=== PATIENT | male | born 1940 | race Caucasian/White ===

== ENCOUNTER 2019-10-09 23:50 | Emergency (ER) | payer MEDICARE, OTHER ==
[~2019-10-09] VITALS: Ht 180.3 cm; Wt 79.8 kg
[~2019-10-09 23:50] MED LIST: DONE10TA44 PO; MEMA28CA PO
--- NOTE | 2019-10-09 23:55 | NUR ---
TO ER BED 2 BIB PRIVATE AMBULANCE FROM [facility] S/P GLF X4HR. PER EMT PT FELL OUT OF WHEELCHAIR & HIT THE BACK OF HIS HEAD. NO KO PER REPORT. PT AAOX2, NO ACUTE DISTRESS NOTED, RESP EVEN AND UNLABORED. ER MD AT BEDSIDE TO EVAL PT WITH ORDERS RECEIVED.
--- NOTE | 2019-10-10 01:10 | NUR ---
PER [facility], COULD NOT TRANSPORT PT DUE TO INSURANCE
--- NOTE | 2019-10-10 01:17 | NUR ---
CALLED [facility] FOR TRANSPORTATION, [phone] [phone]
--- NOTE | 2019-10-10 01:38 | NUR ---
REPORT CALLED TO [facility] AND [facility] REGARDING PT DISCHARGE.
--- NOTE | 2019-10-10 03:35 | NUR ---
REPORT GIVEN TO EMT TRANSPORT.
[2019-10-10 03:36] VITALS: BP 136/64
== END 2019-10-10 03:36 | disposition home or self-care (01) ==
LOC: ER 23:57
DX: S09.8XXA Other specified injuries of head, initial encounter (principal); F03.90 Unspecified dementia, unspecified severity, without behavioral disturbance, psychotic disturbance, mood disturbance, and anxiety; I10 Essential (primary) hypertension; I48.91 Unspecified atrial fibrillation; J44.9 Chronic obstructive pulmonary disease, unspecified; E78.5 Hyperlipidemia, unspecified; Z79.899 Other long term (current) drug therapy; Z90.89 Acquired absence of other organs; W05.0XXA Fall from non-moving wheelchair, initial encounter; Y93.89 Activity, other specified; Y92.89 Other specified places as the place of occurrence of the external cause; Y99.8 Other external cause status
CPT/HCPCS: 70450-TC; 72125-TC